=== PATIENT | male | born 1980 | race Caucasian/White ===

== ENCOUNTER 2016-12-04 13:35 | Emergency (ER) ==
[2016-12-04 13:43] VITALS: BP 166/110
[2016-12-04] MEDS ORDERED: CIPRODEX OTIC SUSPENSION RIGHT EAR ONE (14:36)
[2016-12-04] MEDS ORDERED: DECADRON IM ONE (14:36)
--- NOTE | 2016-12-04 14:38 | PROVIDER DOCUMENTATION ---
HPI-[facility] General <Claire PerezBertha - Last Filed: 12/04/16 14:37> - History of Present Illness-[facility] General [facility] Location: reports: ear (R) Quality of Pain: reports: aching Severity: reports: moderate Onset/Duration: reports: abrupt, 3 days ago Timing: reports: still present Prearrival Treatment: Initiated other (peroxide in both ears) Associated Symptoms: reports: cough, fever (subjective), nasal congestion/ drainage. denies: ear drainage Locality of Occurance: Home - Ears Ear Problem Symptoms: reports: earache, hearing loss (R ear) Ear Problem Context: reports: none <Mague Butts - Last Filed: 12/04/16 15:25> - General Chief Complaint: Cold Symptoms Stated Complaint: FLU LIKE SX Time Seen by Provider: 12/04/16 14:29 Allergies/Adverse Reactions: Patient Allergies Allergy/AdvReac Type Severity Reaction Status Date / Time methylphenidate HCl * AdvReac HIVES Verified 05/10/16 13:29 [From Ritalin] - History of Present Illness-[facility] General Nature of Presenting Problem: 36 yo M presents to ED with cc of R ear pain x 3 days. Pt also reports sinus pain and pressure, cough, chills, and fever (subjective). Pt states he put peroxide in both ears after sinus pressure felt too high and that he can no longer hear out of his R ear. Upon arrival to ED, pt is in no apparent distress and appears nontoxic. (Mague Butts) Review of Systems - Adult - REVIEW OF SYSTEMS - ADULT Constitutional: reports: chills, fever (subjective) Eyes: reports: no symptoms reported. denies: discharge, dry eyes Ears, Nose, Mouth & Throat: reports: ear pain (R ear), hearing loss (R ear ( after pouring peroxide in it)), sinus problem Cardiovascular: reports: no symptoms reported. denies: chest pain, edema Respiratory: reports: cough. denies: dyspnea on exertion, excessive sputum production, shortness of breath Gastrointestinal: reports: no symptoms reported. denies: abdominal pain, hematemesis Genitourinary: reports: no symptoms reported. denies: dysuria, discharge Musculoskeletal: reports: no symptoms reported. denies: bone pain, back pain Integumentary: reports: no symptoms reported. denies: hives, itching Neurological: reports: no symptoms reported. denies: headache/migraines, loss of balance Psychiatric: reports: no symptoms reported. denies: anxiety, anti-depressant use Endocrine: reports: no symptoms reported. denies: cold intolerance, heat intolerance Hematologic/Lymphatic: reports: no symptoms reported. denies: blood clots, easy bruising Allergic/Immunologic: reports: no symptoms reported. denies: allergic reactions , allergic rhinitis, eczema All Other Systems: Reviewed and Negative <Mague Butts - Last Filed: 12/04/16 15:25> Past History - Adult - PAST MEDICAL HISTORY-ADULT Review of Records: reports: Old Records Reviewed, Nursing Assessment Review, Medications Reviewed - IMMUNIZATION STATUS Childhood Immunizations: See Nurse Assessment Flu Vaccine: See Nurse Assessment <Mague Butts - Last Filed: 12/04/16 15:25> Physical Exam- EENT - Physical Exam EENT Initial Vital Signs Reviewed: Yes General Appearance: appears well, alert, no apparent distress Ear Exam: right ear: swelling (obstructed view of TM) Nasal Exam: normal inspection, sinus tenderness (maxillary, frontal) Throat Exam: normal mouth inspection, pharynx normal Neck: non-tender, full range of motion Respiratory: chest non-tender, lungs clear, normal breath sounds Cardiovascular: normal peripheral pulses, regular rate, rhythm Abdominal Exam: normal bowel sounds, non tender, soft Lymphatic: no adenopathy Back Exam: normal inspection, no vertebral tenderness Extremity: normal range of motion, non-tender, normal gait Integumentary: normal color, normal turgor, warm/dry Neurologic: grossly normal, no motor/sensory deficits Psych/Mental Status: normal mood/affect, normal thought content, normal thought process, oriented x 3 <Mague Butts - Last Filed: 12/04/16 15:25> Progress <Claire Perez - Last Filed: 12/04/16 14:37> <Mague Butts - Last Filed: 12/04/16 15:25> - PLAN OF CARE/RESULTS Progress/Plan/Lab Results: Vital Signs - 24 hr 12/04/16 13:41 Temperature 98.6 F Pulse Rate 100 H Respiratory 18 Rate Blood Pressure 166/110 O2 Sat by Pulse 100 Oximetry Orders Category Date Time Status Flu [INFLUENZA SCREEN PL] Stat Lab 12/04/16 13:42 Completed Ciproflox/Dexameth Otic Susp [Ciprodex Otic Suspension] Med 12/04/16 14:36 Discontinued 4 ml RIGHT EAR NOW ONE Dexamethasone [Decadron] Med 12/04/16 14:36 Discontinued 4 mg IM NOW ONE Laboratory Tests 12/04/16 13:42 Influenza A (Rapid) NEGATIVE Influenza B (Rapid) NEGATIVE (Mague Butts) Departure - Departure Time of Disposition Order: 14:37 Certified Medical Emergency: Emergent <Claire Perez - Last Filed: 12/04/16 14:37> <Mague Butts - Last Filed: 12/04/16 15:25> - Departure DIAGNOSIS: URI, acute Otitis externa of right ear Qualifiers: Otitis externa type: unspecified type Chronicity: acute Qualified Code(s): H60.501 - Unspecified acute noninfective otitis externa, right ear Disposition: HOME 01 Condition: Stable Additional Instructions: ED Follow Up Instructions: You have been treated by a care provider in the Emergency Department. These instructions are being provided to you so you can have an understanding of how to care for yourself upon discharge. Upon discharge from the Emergency Department, you are responsible for making arrangements for follow-up care by a physician of your choice. Take all prescribed medications as directed. Return to the Emergency Department immediately for any new or worsening symptoms. You may call the Physician Referral phone number at [phone] to obtain a list of Physicians who are taking new patients. Prescriptions: Amoxicillin [Amoxil] 500 mg PO BID #20 capsule Prednisone [Deltasone] 20 mg PO DIRECTED #12 tablet Referrals: None,PCP [Primary Care Provider] - Saul Sheets MD [STAFF PHYSICIAN] - Forms: Return to School/Parent Work Instructions: Amoxicillin capsules or tablets, Prednisone tablets Attestation - Scribe Verification/Attestation Scribe:: Mague Butts Acting as Scribe for:: Claire Perez Scribe documention review:: This chart was documented by a scribe and accurately reflects the service the provider performed and the decisions made by the provider. - Physician/ Mid-level Attestation Patient care was provided by Mid-level provider (NATIONAL ACCOUNT MANAGER/PA):: Yes Mid-level provider:: Claire Perez Mid-level documentation review:: The Mid-level provider documentation, treatment plan and medical decision making was reviewed by the physician who agrees with all treatment and medical decision making by the MLP. <Mague Butts - Last Filed: 12/04/16 15:25> Physician Attestation
== END 2016-12-04 15:31 | disposition home or self-care (01) ==
LOC: P.ED 13:35
DX: H60.501 Unspecified acute noninfective otitis externa, right ear (principal); J06.9 Acute upper respiratory infection, unspecified; H92.01 Otalgia, right ear; R09.81 Nasal congestion; R05 Cough; R50.9 Fever, unspecified; Z79.899 Other long term (current) drug therapy
CPT/HCPCS: 87804; 96372; J1100

== ENCOUNTER 2019-10-11 10:46 | Inpatient (IN) ==
--- NOTE | 2019-10-11 11:33 | PROVIDER DOCUMENTATION ---
This chart was entered by Elizabet Richardson Scribe, acting as scribe for Charity Denise CRNP. HPI-General Adult - General Chief Complaint: General Adult Stated Complaint: POSS DEHYDRATION, SOB, Time Seen by Provider: 10/11/19 10:56 Source: patient Allergies/Adverse Reactions: Patient Allergies Allergy/AdvReac Type Severity Reaction Status Date / Time methylphenidate HCl * AdvReac HIVES Verified 10/04/19 10:53 [From Ritalin] Home Medications: Home Medication List Medication Instructions Recorded Confirmed Last Taken Type Lisinopril 20 mg PO DAILY 04/25/19 10/11/19 09/25/19 History Ibuprofen 800 mg PO Q8H PRN PRN #14 tab 10/04/19 10/11/19 Unknown Rx - History of Present Illness -Gen Adult Nature of Presenting Problems: 38 yom presents to the ed with multiple complaints. pt sts went to donate plasma yesterday and when they went to get a finger stick it was difficult and they told him he could not donate because he was dehydrated. pt c/o 2 days of nausea, diarrhea, R sided CP, SOB, chills, and decreased appetite. pt on exam has a subway bag and drink at bedside. also reports he has an abscess in his L upper mouth x "a while." pt is in no apparent distress upon examination. able to speak in full sentences without pausing, no evidence of retractions/accessory muscle usage upon examination. O2 saturation on RA 99%. Location of Pain/Injury: reports: mouth (L upper dental abscess), chest (R), abdomen, generalized Pain Radiation: reports: no radiation Quality of Pain: reports: aching, cramping Severity: reports: moderate Onset/Duration: reports: 2 days ago, other (dental abscess x"a while") Timing: reports: still present, intermittent Context/Activities at Onset: reports: light activity Modifying Factors: improves with: nothing. worse with: palpation Associated Symptoms: reports: chest pain (R), diarrhea, dizziness, fatigue, fever/chills (subjective), malaise, muscle aches, nausea, shortness of breath, other (L dental abscess). denies: back/neck pain, cough, syncope, vomiting, trouble walking Similar Symptoms Previously?: No Recently seen or treated by another doctor?: No Review of Systems - Adult - REVIEW OF SYSTEMS - ADULT Constitutional: reports: see HPI, fever (subjective), fatique Eyes: reports: no symptoms reported Ears, Nose, Mouth & Throat: reports: see HPI, mouth/dental pain. denies: ear pain, throat pain Cardiovascular: reports: see HPI, chest pain (rt sided). denies: palpitations, syncope Respiratory: reports: see HPI, shortness of breath. denies: cough, excessive sputum production, wheezing Gastrointestinal: reports: see HPI, abdominal pain, diarrhea, nausea, poor appetite. denies: vomiting Genitourinary: reports: no symptoms reported Musculoskeletal: reports: see HPI, muscle aches. denies: back pain, neck pain Integumentary: reports: no symptoms reported Neurological: reports: no symptoms reported. 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 on dangers of tobacco.: Discussed manners to quit use, and f/u contacts for add'l counseling. Substance Use: alcohol, marijuana Alcohol Use Frequency: 2-3 times a month Number of drinks per typical drinking period:: 3-4 drinks Living Situation: family Physical Exam-General - PHYSICAL EXAM-ADULT Initial Vital Signs Reviewed: Yes - CONSTITUTIONAL General Appearance: appears well, alert, no apparent distress. negative: lethargic, slow to respond, obtunded - EYES Eyes: PERRL/EOMI, pink conjunctivae. negative: EOM palsy, scleral icterus - HEAD, EARS, NOSE, MOUTH & THROAT HENMT: normocephalic/atraumatic, dental decay, other (L upper posterior dental abscess without difficulty swallowing). negative: moist mucous membranes (mild dry), angioedema - NECK Neck: non-tender, full range of motion, supple, normal inspection - RESPIRATORY Respiratory: chest non-tender, lungs clear, normal breath sounds, no pleuratic chest pain, no respiratory distress, no accessory muscle use. negative: crackles, rales, rhonchi, stridor, wheezing, retractions, splinting - CARDIOVASCULAR Cardiovascular: regular rate, rhythm - CHEST (BREASTS) Chest/Breast: tenderness (mild rt sided) - GASTROINTESTINAL (ABDOMEN) Abdominal Exam: normal bowel sounds, non tender, soft, other (nausea and diarrhea). negative: guarding, rigid, rebound, tenderness - GENITOURINARY Male Genitalia: deferred Rectal Exam: deferred Hemoccult Exam: deferred - LYMPHATIC Lymphatic: no adenopathy - MUSCULOSKELETAL Back Exam: normal inspection, no CVA tenderness, no vertebral tenderness Extremity: normal range of motion, non-tender, normal gait, normal inspection, pelvis stable - SKIN Integumentary: normal color, warm/dry, pallor. negative: cyanosis, jaundice - NEUROLOGIC Neurologic: grossly normal. negative: abnormal gait, aphasia, EOM palsy, facial droop, focal weakness - PSYCHIATRIC Psych/Mental Status: normal mood/affect, normal thought content, normal thought process, oriented x 3 Progress - PLAN OF CARE/RESULTS Progress/Plan/Lab Results: Vital Signs - 8 hr 10/11/19 10:54 Temperature 97.8 F Pulse Rate 88 Respiratory Rate 18 Blood Pressure 124/81 O2 Sat by Pulse Oximetry 99 Lab results, imaging results, need for admission, and plan of care discussed with patient who agrees with and verbalizes understanding. Plan of care discussed and formulated in conjunction with Dr. Pittman who also examined the patient. Patient meets SIRS criteria (HR > 90, lactic acid 2.7, & source of infection.). Sepsis workup ordered, blood cultures obtained, and antibiotics given. Result Diagrams: 10/11/19 11:03 10/11/19 11:03 - REASSESSMENT Reassessment #1 Time Reassessed: 14:13 Status: improving - EKG 1 Time of EKG reading by physician:: 11:29 EKG Read and Signed by:: Olegario Pittman EKG Interpretation (*Must complete 3 of following elements*): Normal Rate: 89 Rhythm: NSR [place]: normal QRS: poor R wave progression, LVH IL Interval: normal ST Wave: normal Comments: artifact present - XRAY 1 XRAY: Bilateral XRAY Study: Chest Impression: See EMR Report (EXAM: CHEST-2 VIEWS 10/11/2019 HISTORY: SOB TECHNIQUE: PA and lateral chest COMMENT: There is no evidence of acute cardiac or pulmonary disease. Compared to 04/15/2018 there has been no significant change in the appearance of the chest. IMPRESSION: No acute disease. Electronically signed by Jadon Camilo 10/11/2019 12:00 PM 10/11/19 1200 Interpreting Physician: Jadon Camilo MD Dictated Date/Time: 10/11/19 1159 cc: Charity Denise; None,PCP) - CONSULTS/PCP/HOSPITALIST Notification #1 *Consult/PCP/Hospitalist*: [facility] Hospitalist Time Discussed: 13:38 Reason/Comments: Sepsis; UTI; dental abscess Consult Disposition: Will see in ED, Admit Departure - Departure Date of Disposition Decision: 10/11/19 Time of Disposition Decision: 13:40 DIAGNOSIS: Dental abscess, Shortness of breath, Right-sided chest pain, Dehydration Sepsis Qualifiers: Sepsis type: sepsis due to unspecified organism Sepsis acute organ dysfunction status: unspecified Qualified Code(s): A41.9 - Sepsis, unspecified organism UTI (urinary tract infection) Qualifiers: Urinary tract infection type: acute cystitis Hematuria presence: without hematuria Qualified Code(s): N30.00 - Acute cystitis without hematuria Disposition: ADMITTED INPATIENT 09 Certified Medical Emergency: Emergent Condition: Stable - Critical Care Note This patient required my direct & personal management of CC.: Yes Total Time (mins): 36 Critical Care Statement: This patient required my direct personal management to treat or rule out processes, the absence of which, could potentiallly result in sudden, clinically significant life or limb threatening deterioration. Attestation - Physician/ GINGER Attestation Patient care was provided by Advanced Practice Provider:: Yes Advanced Practice Provider:: Charity Denise Advanced Practice Provider documentation review:: The Mid-level provider documentation, treatment plan and medical decision making was reviewed by the physician who agrees with all treatment and medical decision making by the MLP. The physician spent face to face time with patient:: Yes (Toya) Advanced Practice Provider documentation review:: Supervising physician onsite and consulted in the evaluation and care of this patient. The physician did have a face to face encounter with the patient. - HEART Score HEART Score: History: Slightly Suspicious HEART Score: ECG: Normal HEART Score: Age: < or = 45 Years HEART Score: Risk Factors for Atherosclerotic Disease: 1 or 2 Risk Factors HEART Score: Troponin: < or = Normal Limit Total HEART Score:: 1 This chart was documented by the indicated scribe, (Elizabet Richardson, Melisa) and accurately reflects the services I performed and decisions made by me, Charity Denise CRNP, as attested by the provider's signature.
[2019-10-11] MEDS ORDERED: NS 1,000 ML IV ONE ×2 (11:37→12:03)
[2019-10-11] MEDS ORDERED: ZOFRAN IV ONE (11:37)
[2019-10-11 11:39] LABS: BASO# 0.03 X1000 (0.0-0.2); BASO% 0.5 % (0.0-0.8); EOS# 0.02 X1000 (0.0-0.7); EOS% 0.3 % (0.0-10.0); HEMATOCRIT 47.2 % (42.0-52.0); HEMOGLOBIN 15.6 g/dL (14.0-18.0); IMM GRAN# 0.01 X1000 (0.0-0.04); IMM GRAN% 0.2 % (0.0-0.5); LYMPH# 1.05 X1000 (1.2-3.4); LYMPH% 18.1 % (20.5-51.1); MCH 28.7 PG (27-31); MCHC 33.1 g/dL (33-37); MCV 86.9 FL (81-99); MONO# 0.63 X1000 (0.11-0.59); MONO% 10.9 % (1.7-9.3); NEUT# 4.06 X1000 (1.4-6.5); PLT 209 X1000 (130-400); RBC 5.43 XMIL (4.7-6.1); RDW 12.7 % (11.5-14.5)
[2019-10-11 11:48] LABS: BILIRUBIN URINE NEGATIVE (NEGATIVE); BLOOD URINE NEGATIVE (NEGATIVE); CLARITY SL. CLOUDY (CLEAR); COLOR YELLOW; KETONE URINE 3+(Large) mg/dL (NEGATIVE); LEUKOCYTES URINE TRACE (NEGATIVE); NITRITE URINE POSITIVE (NEGATIVE); PH URINE 6.5; PROTEIN URINE 1+(30 mg/dL) mg/dL (NEGATIVE); UROBILINOGEN URINE 4 mg/dL
[2019-10-11 11:49] LABS: CALCIUM 8.8 mg/dL (8.8-10.2); CREATININE 1.4 mg/dL (0.7-1.2); POTASSIUM 4.4 mmol/L (3.5-5.1); TOTAL BILIRUBIN 0.7 mg/dL (0.20-1.00); TOTAL PROTEIN 6.9 g/dL (6.3-8.3)
[2019-10-11 11:50] LABS: URINE BACTERIA 1+ /HFP; URINE CAST NONE SEEN /LPF; URINE CRYSTAL NONE SEEN /HPF; URINE EPITHELIAL CELLS <10 /HPF (<10); URINE RBC <10 /HPF (<10); URINE SOURCE CLEAN CATCH; URINE WBC <10 /HPF (<10); URINE YEAST PRESENT /HPF
[2019-10-11 12:01] LABS: UR AMPHETAMINES QUAL NONE DETECTED (NONE DETECT); UR BARBITUATES QUAL NONE DETECTED (NONE DETECT); UR BENZODIAZEPIN QUAL NONE DETECTED (NONE DETECT); UR CANNABINOIDS QUAL PRESUMPTIVE POSITIVE (NONE DETECT); UR COCAINE QUAL NONE DETECTED (NONE DETECT); UR METHADONE QUAL NONE DETECTED (NONE DETECT); UR METHAMPHETAMINE QUAL NONE DETECTED (NONE DETECT); UR OPIATES QUAL PRESUMPTIVE POSITIVE (NONE DETECT); UR OXYCODONE QUAL NONE DETECTED (NONE DETECT); UR PCP QUAL NONE DETECTED (NONE DETECT); UR PROPOXYPHENE QUAL NONE DETECTED (NONE DETECT); UR TCA QUAL NONE DETECTED (NONE DETECT)
[2019-10-11] MEDS ORDERED: ROCEPHIN 1 GM in NS 50 ML IV ONE (12:02)
--- NOTE | 2019-10-11 12:02 | Diag Imaging Result Doc PS360 ---
EXAM: CHEST-2 VIEWS 10/11/2019 HISTORY: SOB TECHNIQUE: PA and lateral chest COMMENT: There is no evidence of acute cardiac or pulmonary disease. Compared to 04/15/2018 there has been no significant change in the appearance of the chest. IMPRESSION: No acute disease. Electronically signed by Jadon Camilo 10/11/2019 12:00 PM
[2019-10-11 12:14] LABS: INR 1.03
--- NOTE | 2019-10-11 13:52 | EKG Report ---
Test Performed on : 10/11/2019 11:24:20 AM Test Reason : SOB Blood Pressure : / mmHG Vent. Rate : 089 BPM Atrial Rate : 089 BPM P-R Int : 140 ms QRS Dur : 074 ms QT Int : 350 ms P-R-T Axes : 029 014 014 degrees QTc Int : 425 ms Normal sinus rhythm. Normal ECG When compared with ECG of 13-JUL-2017 15:27, No significant change was found Unconfirmed Result
[2019-10-11] MEDS ORDERED: TYLENOL PO PRN (14:29)
[2019-10-11] MEDS: NS 1,000 ML IV SCH (15:44)
[2019-10-11] MEDS: ZOSYN 3.375 GM in NS 50 ML IV SCH ×2 (15:44→21:07)
[2019-10-11 16:18] LABS: HEMOGLOBIN A1C 5.3 % (4.8-6.0)
--- NOTE | 2019-10-11 21:07 | HISTORY AND PHYSICAL ---
CHIEF COMPLAINT: Dehydration, nausea, diarrhea, and toothache. HISTORY OF PRESENT ILLNESS: This is a 38-year-old male with a history of ADHD and hypertension, who presents to the emergency room complaining of 3 days of diarrhea and nausea with very little p.o. intake. He reports having urinary frequency and urgency that started about 4 days ago, as well as a supposed dental abscess to his left upper tooth. He denied any fevers or chills. He did state that he has had very little p.o. intake secondary to tooth pain. He denied any productive cough, any fevers or chills, any constipation, black or bloody vomitus or stools. PAST MEDICAL HISTORY: ADHD, hypertension. PAST SURGICAL HISTORY: He denies. SOCIAL HISTORY: He smokes about a pack a day. He drinks alcohol a few times a week. He smokes marijuana almost daily. ALLERGIES: Ritalin which gives him hives. HOME MEDICATIONS: None. REVIEW OF SYSTEMS: Discussed with patient with pertinent positives stated in the HPI. He denied any syncope or dizziness, any palpitations, any productive cough, fever, chills, night sweats, recent weight loss or weight gain, any vomiting, constipation, black or bloody vomitus or stools, any hematuria, dysuria, frequency, urgency. PHYSICAL EXAMINATION: GENERAL: This is a 38-year-old gentleman who is sitting up on the stretcher in the emergency room in no distress. VITAL SIGNS: Blood pressure is 123/87, with heart rate of 83, respirations are 20, temperature is 98.7 degrees oral, with room air saturations 97 to 99 percent. HEENT: Head is normocephalic, atraumatic. Mucous membranes are moist. Pupils are equal, round, react to light. Sclerae are anicteric. NECK: Supple with trachea midline. CARDIOVASCULAR: Regular rate and rhythm. S1 and S2 appreciated. He has no lower extremity edema. Calves are nontender bilaterally with peripheral pulses palpable x4 extremities. PULMONARY: Breath sounds are clear with no increased work of breathing noted. Chest rises and falls symmetric to respiration. Chest wall is tender to palpation on the right side. GASTROINTESTINAL: Abdomen is soft, nontender, nondistended, with bowel sounds in all 4 quadrants. NEUROLOGIC: He is alert and oriented x3. SKIN: Pale, warm, and dry. LABORATORY AND DIAGNOSTIC DATA: 1. WBC is 5.8, with hemoglobin 15.6, hematocrit 47.2, and platelets of 209,000. INR is 1.03 with a D-dimer of 0.29. Sodium 134, potassium 4.4, BUN 18, creatinine 1.4, with a glucose of 160. Troponin is negative. Lactate is 2.7. Urinalysis is nitrite positive with less than 10 microscopic red blood cells, white blood cells, epithelial cells, and 1+ bacteria. Urine drug screen is presumptive positive for opiates and cannabinoids. 2. Chest x-ray: No acute disease. 3. EKG reveals sinus rhythm at a rate of 89. ASSESSMENT AND PLAN: 1. Acute kidney injury. This is very likely secondary to dehydration as the patient has had very little p.o. intake. He received a 2 L bolus in the emergency room. We will continue IV fluids at 100 an hour. We will renal dose any medications and recheck labs in the morning. 2. Left upper toothache. Antibiotic coverage of Zosyn. 3. Possible urinary tract infection. Rocephin q.6 hours. Urine culture is pending. Any further antibiotics will be culture driven. 4. History of hypertension. The patient is on no medications and has been on none for quite some time. We will monitor his vital signs and treat as appropriate. 5. Nausea and diarrhea. We will order stool studies and monitor. 6. Cannabinoid use and abuse. The patient was counseled on the importance of cessation, and at this time, he states that he has no intention of stopping using cannabinoid as this helps his attention-deficit/hyperactivity disorder. 7. Alcohol use and abuse. He does state that it has been at least 4 days since his last drink. We will monitor. We did discuss the importance of alcohol cessation. 8. Right-sided chest wall pain. This pain can be reproduced with movement and palpation as well as a cough. It is not present while sitting still and breathing shallow. We will monitor, holding off on any anti-inflammatories at this time as he is in acute kidney injury. 9. For deep vein thrombosis prophylaxis, will use SCDs, and gastrointestinal prophylaxis Prilosec. Further treatments pending hospital course. This plan was discussed with Dr. Leija. Dictated by MARLENE Toscano for Roman Leija MD cc: MARLENE Toscano MD [facility]
--- NOTE | 2019-10-12 00:14 | HISTORY AND PHYSICAL ---
ADDENDUM: Patient seen and examined by myself. Full note dictated and discussed with nurse practitioner. Patient presented to the hospital complaining of shortness of breath and possible dehydration. Notes that he has an abscess on his face that has been getting worse. Has not been to the dentist. We are going to admit him to the hospital, place him on antibiotics. He appears to have an early sepsis and we will follow. cc: Roman Leija MD
[2019-10-12] MEDS: NS 1,000 ML IV SCH ×2 (01:16→12:43)
[2019-10-12] MEDS: ZOSYN 3.375 GM in NS 50 ML IV SCH ×4 (02:06→21:31)
[2019-10-12 05:25] LABS: HEMATOCRIT 40.2 % (42.0-52.0); HEMOGLOBIN 13.3 g/dL (14.0-18.0); MCH 28.5 PG (27-31); MCHC 33.1 g/dL (33-37); MCV 86.3 FL (81-99); MPV 11.9 FL (7.4-10.4); RBC 4.66 XMIL (4.7-6.1); RDW 12.5 % (11.5-14.5); WBC 4.47 X1000 (4.8-10.8)
[2019-10-12 05:38] LABS: AGAP 7; BUN 14 mg/dL (8-22); CALCIUM 8.1 mg/dL (8.8-10.2); CHLORIDE 107 mmol/L (98-107); COSMO 272; CREATININE 1.3 mg/dL (0.7-1.2); ESTIMATED GFR > 60; GLUCOSE 98 mg/dL (70-104); POTASSIUM 4.9 mmol/L (3.5-5.1); SODIUM 136 mmol/L (136-145); TCO2 22 mmol/L (25-35)
[2019-10-12] MEDS: PRILOSEC PO SCH (06:18)
[2019-10-12] MEDS ORDERED: TYLENOL PO PRN (06:45)
--- NOTE | 2019-10-12 13:31 | Diag Imaging Result Doc PS360 ---
EXAM: CT MAXILLOFACIAL(SINUS) W/O CO HISTORY: ?abcess TECHNIQUE: Routine. COMPARISON: None. FINDINGS: There is mild left maxillary sinus is thickening. The globes are unremarkable. There is soft tissue attenuation surrounding a left upper molar tooth. There is bony destruction/resorption. There is an enlarged and inflamed left submandibular lymph node compatible with adenitis. There is mild thickening of the adjacent platysma muscle. Airway is patent. No soft tissue abscess is identified on the noncontrast study. Multilevel fusion of the cervical spine. IMPRESSION: 1.Left upper molar dental disease with bony destruction/absorption. 2.Enlarged left-sided submandibular lymph node with inflammatory change suspicious for adenitis. 3.Mild left maxillary mucosal thickening. Electronically signed by Stacie Crump 10/12/2019 1:28 PM
--- NOTE | 2019-10-12 17:19 | PROGRESS NOTE ---
DATE: 10/12/2019 SUBJECTIVE: Patient is still notes he is having difficulty eating and swallowing because of the pain of his dental infection. OBJECTIVE: Vital Signs: Temperature is afebrile 99, pulse 60, BP 102/60. General: Patient is in no current respiratory distress. HEENT: Normocephalic. Neck: Supple. Cardiovascular: Regular rate. Respiratory: Chest, clear nonlabored. Abdomen: Soft, nondistended. Extremities: Moves all extremities. ASSESSMENT: 1. Dental cavity. We did a CT which did not demonstrate any abscess. 2. Acute kidney injury resolved secondary to volume depletion. 3. Polysubstance use and abuse. 4. Nausea. 5. History of alcohol use and abuse. PLAN: We are going to continue patient on hospital, continue antibiotics. We certainly needs to see a dentist as an outpatient. Hopefully can discharge soon. Again discussed with patient today, as we did yesterday, that dental extractions are not typically done as a hospital admission. cc: Roman Leija MD
[2019-10-13] MEDS: NS 1,000 ML IV SCH (00:19)
[2019-10-13] MEDS: ZOSYN 3.375 GM in NS 50 ML IV SCH ×4 (02:16→21:38)
[2019-10-13] MEDS: PRILOSEC PO SCH (06:37)
[2019-10-13] MEDS ORDERED: NS 50 ML ONE ×2 (09:51→10:03)
--- NOTE | 2019-10-13 20:08 | PROGRESS NOTE ---
DATE: 10/13/2019 SUBJECTIVE: Patient notes that he is feeling better. He is having less swelling on the left side of his face. He does state that he was told some time ago and on different occasions that he has bone loss due to cavities. PHYSICAL EXAMINATION: Temp 98, pulse 86, respiratory rate 18, BP 119/74.General: Patient is awake, currently in no respiratory distress. HEENT: Normocephalic. Neck: Supple. Cardiovascular: Regular rate. No murmurs. Chest: Clear, nonlabored. Abdomen: Soft, nondistended. Extremities: Moves all extremities. ASSESSMENT: 1. Dental cavity without dental abscess. Unsure if his bone loss seen on CT is new or old given the new information Mr. Heredia shared today. 2. Acute kidney injury, resolved. 3. Hypertension. 4. Chronic cannabis use and abuse. 5. Chronic alcohol use and abuse. PLAN: Overall patient is improving. We will continue antibiotics today. Expect we may be able to discharge him home tomorrow. cc: Roman Leija MD
[2019-10-14] MEDS: ZOSYN 3.375 GM in NS 50 ML IV SCH (03:35)
[2019-10-14] MEDS: PRILOSEC PO SCH (06:16)
[2019-10-14] MEDS ORDERED: CLEOCIN PO SCH (10:00)
[2019-10-14 11:17] VITALS: BP 133/85
--- NOTE | 2019-10-14 19:30 | DISCHARGE SUMMARY ---
ADMISSION DATE: 10/11/2019 DISCHARGE DATE: 10/14/2019 ADDENDUM: Patient seen and examined by myself. Full note dictated and discussed with nurse practitioner. On discharge, patient is awake, alert. He is in no distress. He does have a known history of dental cavities and bone erosions per his own admission. Discussed with him the importance of following up outpatient with a dentist or oral surgeon. We will discharge him home on antibiotics. Currently is awake, alert, in no distress. cc: Roman Leija MD
--- NOTE | 2019-10-21 03:10 | DISCHARGE SUMMARY ---
ADMISSION DATE: 10/11/2019 DISCHARGE DATE: 10/14/2019 DISCHARGE DIAGNOSIS: 1. Dental cavity with bone erosion. 2. Medical noncompliance. Patient admits knowledge of bone erosion from previous dental visits, but has not followed up with care. 3. Hypertension. 4. Chronic cannabis use. 5. Chronic alcohol use. 6. Acute kidney injury, resolved. 7. Decreased oral intake, resolved. CONSULTATIONS: None. PROCEDURES: None. BRIEF HOSPITAL COURSE: The patient was admitted to the hospital secondary to decreased oral intake, acute kidney injury and volume depletion. He was noted to have some mild facial swelling on the left. CT demonstrated a dental cavity with bone erosion. Thankfully, with antibiotics his symptoms continued to improve. On discharge, patient was eating and drinking without any difficulty. His facial swelling has resolved. Pain is improved. DISPOSITION: Patient will be discharged home with antibiotics as well as instructions. He will follow up outpatient with a dentist of choice. Did discuss with him the importance of stopping drinking, stopping smoking, continue his antibiotics and following up with a dentist. TIME SPENT: Greater than 30 minutes was spent in total care. cc: Roman Leija MD
== END 2019-10-14 13:02 | disposition home or self-care (01) | DRG 641 ==
LOC: P.ED 10:46 → P.MEDSURG 15:04
PROVIDERS: ATTEND Family Medicine